=== PATIENT | female | born 1960 | race Caucasian/White ===

== ENCOUNTER 2017-06-12 07:51 | Emergency (ER) | payer OTHER ==
[~2017-06-12] VITALS: Ht 157.5 cm; Wt 58.0 kg
[2017-06-12] MEDS ORDERED: SERT100T5 PO (08:14)
[2017-06-12] MEDS ORDERED: DIPHENHYDRAMINE 50 MG/ML, 1ML ONE (08:46)
[2017-06-12] MEDS ORDERED: KETOROLAC 30 MG/1 ML ONE (08:46)
[2017-06-12] MEDS ORDERED: METOCLOPRAMIDE 5 MG/ML, 2ML ONE (08:46)
[2017-06-12] MEDS ORDERED: SODIUM CHLORIDE 0.9% 1,000ML IVBOLUS ONE (09:00)
[2017-06-12] MEDS ORDERED: KETOROLAC 30 MG/1 ML IVPush ONE (09:00)
[2017-06-12] MEDS ORDERED: SODIUM CHLORIDE FLUSH 10ML SYR IVF ONE (09:00)
[2017-06-12] MEDS ORDERED: METOCLOPRAMIDE 5 MG/ML, 2ML IVPush ONE (09:00)
[2017-06-12] MEDS ORDERED: DIPHENHYDRAMINE 50 MG/ML, 1ML IVPush ONE (09:00)
[2017-06-12 11:20] VITALS: BP 145/89
== END 2017-06-12 11:22 | disposition home or self-care (01) ==
LOC: ED 09:36
DX: R51 Headache (principal); I10 Essential (primary) hypertension; Z88.0 Allergy status to penicillin; F12.10 Cannabis abuse, uncomplicated
CPT/HCPCS: 96361; 96374; 96375; 99285; J1200; J1885; J2765; J7030